=== PATIENT | female | born 1960 ===

== ENCOUNTER 2022-01-28 13:03 | Emergency (ER) | payer OTHER ==
[~2022-01-28] VITALS: Ht 157.5 cm; Wt 72.6 kg
[2022-01-28] MEDS ORDERED: ATORVASTATIN CA40 MG PO (13:47)
[2022-01-28] MEDS ORDERED: PROGESTERONE100 M1 PO (13:48)
[2022-01-28] MEDS ORDERED: LOSARTAN POTASS50 MG PO (13:48)
== END 2022-01-28 19:43 | disposition home or self-care (01) ==
LOC: ER 13:03
DX: J10.1 Influenza due to other identified influenza virus with other respiratory manifestations (principal); I10 Essential (primary) hypertension; Z20.822 Contact with and (suspected) exposure to COVID-19